=== PATIENT | male | born 1985 | race Caucasian/White ===

== ENCOUNTER 2022-10-07 16:37 | Emergency (ER) | payer OTHER ==
[~2022-10-07] VITALS: Ht 185.4 cm; Wt 106.1 kg
[2022-10-07 16:39] VITALS: TEMP 99
[2022-10-07] MEDS ORDERED: KETOROLAC 60MG 2ML VIAL IM ONE (18:35)
[2022-10-07] MEDS ORDERED: traMADol 50 MG TAB (HOME DOSE PACK) PO ONE (18:40)
[2022-10-07 19:00] VITALS: BP 158/78; O2SAT 97
== END 2022-10-07 19:00 | disposition home or self-care (01) ==
LOC: M ED 16:37
DX: S52.572A Other intraarticular fracture of lower end of left radius, initial encounter for closed fracture (principal); V00.131A Fall from skateboard, initial encounter; Y92.009 Unspecified place in unspecified non-institutional (private) residence as the place of occurrence of the external cause; Y93.51 Activity, roller skating (inline) and skateboarding; Y99.8 Other external cause status; K21.9 Gastro-esophageal reflux disease without esophagitis
CPT/HCPCS: 73090; 73110; 96372; 99283; J1885